=== PATIENT | male | born 1995 | race Hispanic/Latino ===

== ENCOUNTER 2017-11-06 06:50 | Emergency (ER) | payer OTHER ==
[2017-11-06] MEDS ORDERED: ONDANSETRON 4 MG/2 ML VIAL ONE (07:28)
[2017-11-06] MEDS ORDERED: PANTOPRAZOLE 40 MG INJ ONE (07:28)
[2017-11-06] MEDS ORDERED: NA CHLORIDE 0.9% 1,000 ML ONE (07:28)
[2017-11-06 07:32] LABS: Urine Blood NEGATIVE (NEG); Urine Glucose NEGATIVE (NEG); Urine Protein TRACE (NEG); Urine Specific Gravity 1.025 (1.005-1.030); Urine pH 6.5 (5.0-7.0)
[2017-11-06 07:42] LABS: Absolute Lymphocytes (CBC) 2.6 K/uL (0.7-4.9); Absolute Monocytes 0.8 K/uL (0.1-1.3); Absolute Neutrophil 5.2 K/uL (1.8-8.0); Basophils % 0.5 % (0-1.3); Eosinophils % 1.4 % (0-4.4); Hematocrit 48.3 % (39.6-49.0); Lymphocytes % 29.3 % (15.3-44.8); MCH 32.2 pg (27.0-35.0); MCV 89.3 fL (80-100); MPV 9.6 fL (7.6-11.3); Monocytes % 9.2 % (3.3-12.3); RBC Red Blood Cell Count 5.41 M/uL (4.33-5.43)
[2017-11-06 07:49] LABS: Albumin 3.8 g/dL (3.4-5.0); Bilirubin Direct 0.2 mg/dL (0-0.2); Potassium 3.2 mmol/L (3.5-5.1); Protein, Total 7.6 g/dL (6.4-8.2)
[2017-11-06 07:51] LABS: Urine Bacteria <20 /HPF (NONE SEEN); Urine Culture Reflex Order NOT NEEDED; Urine RBC <5 /HPF (NONE SEEN)
[2017-11-06] MEDS ORDERED: POTASSIUM 25 MEQ EFFERV TAB ONE (08:22)
--- NOTE | 2017-11-06 08:59 | ER ---
Nurse's Notes [facility] Name: Christiane Mason Age: 21 yrs Sex: Male : 1995 Arrival Date: 11/06/2017 Time: 06:54 Bed 15 Private MD: Gayathri Soria C Diagnosis: Upper abdominal pain, unspecified Presentation: 11/06 07:01 Presenting complaint: Patient states: RUQ that radiates to the LUQ, started about a sv week ago but pain increased yesterday. Denies urinary symptoms, cough, injury, fall. Transition of care: patient was not received from another setting of care. Onset of symptoms was October 30, 2017. Care prior to arrival: None. 07:01 Method Of Arrival: Ambulatory sv 07:01 Acuity: PRITI 3 sv 07:10 Risk Assessment: Do you want to hurt yourself or someone else? Patient reports no aa5 desire to harm self or others. Initial Sepsis Screen: Does the patient meet any 2 criteria? No. Patient's initial sepsis screen is negative. Does the patient have a suspected source of infection? No. Patient's initial sepsis screen is negative. Historical: - Allergies: 07:07 No Known Allergies; sv - Home Meds: 07:07 None [Active]; sv - PMHx: 07:07 fatty liver; sv - PSHx: 07:07 None; sv - Ebola Screening: : No symptoms or risks identified at this time. Screenin:10 Abuse screen: Denies threats or abuse. Nutritional screening: No deficits noted. aa5 Tuberculosis screening: No symptoms or risk factors identified. Fall Risk None identified. Assessment: 07:10 General: Appears comfortable, Behavior is calm, cooperative. Pain: Complains of pain in aa5 right upper quadrant Pain radiates to left upper quadrant Pain currently is 8 out of 10 on a pain scale. Quality of pain is described as sharp, Pain began 1 week ago. Neuro: Level of Consciousness is awake, alert, obeys commands, Oriented to person, place, time, situation. Cardiovascular: Heart tones S1 S2 present Rhythm is regular. Respiratory: Airway is patent Respiratory effort is even, unlabored, Respiratory pattern is regular, symmetrical. GI: Abdomen is round non-distended, Bowel sounds present X 4 quads. Abd is soft and non tender X 4 quads. Reports intermittent nausea, denies vomiting, reports diarrhea yesterday. : Denies burning with urination, inability to void. EENT: No signs and/or symptoms were reported regarding the EENT system. Derm: Skin is pink, warm \\T\\ dry. Musculoskeletal: Range of motion: intact in all extremities. 08:20 Reassessment: To bedside to administer potassium, pt currently at US. aa5 08:32 Reassessment: Patient is alert, oriented x 3, equal unlabored respirations, skin aa5 warm/dry/pink. Pt back from US, pt sitting up in bed, pt currently denies pain, pt states "the pain is only when I walk and when I move or reposition". Pt notified of wait time for US results, pt verbalizes understanding. . Vital Signs: 07:01 BP 155 / 104; Pulse 93; Resp 18; Temp 97.5; Pulse Ox 100% ; Height 5 ft. 7 in. (170.18 sv cm); Pain 6/10; 07:40 BP 137 / 98; Pulse 75; Resp 16 S; Pulse Ox 99% on R/A; aa5 08:40 BP 129 / 77; Pulse 78; Resp 16 S; Pulse Ox 98% on R/A; Pain 0/10; aa5 09:10 BP 117 / 70; Pulse 74; Resp 18 S; Pulse Ox 99% on R/A; Pain 3/10; aa5 ED Course: 06:54 Patient arrived in ED. al2 06:54 Gayathri Soria MD is Private Physician. al2 07:01 Arm band placed on right wrist. Patient placed in an exam room, on a stretcher. sv 07:02 Scooby Calle PA is PHCP. cp 07:02 Scooby Abreu MD is Attending Physician. cp 07:04 Karla Garduno, LARRY is Primary Nurse. aa5 07:06 Triage completed. sv 07:10 Patient has correct armband on for positive identification. Bed in low position. Call aa5 light in reach. Side rails up X2. Pulse ox on. NIBP on. 07:22 Inserted saline lock: 20 gauge in right antecubital area, using aseptic technique. aa5 Blood collected. IV inserted by Jeanette Giles RN. 07:22 No provider procedures requiring assistance completed. aa5 08:24 US Abdomen Limited In Process Unspecified. EDMS 08:31 Ultrasound completed. Patient tolerated well. Patient moved back from ultrasound. jay 08:58 Tova Kumar MD is Referral Physician. cp 09:12 IV discontinued, intact, bleeding controlled, No redness/swelling at site. Pressure aa5 dressing applied. Administered Medications: 07:25 Drug: ProTONIX 40 mg Route: IVP; Site: right antecubital; aa5 07:30 Follow up: Response: No adverse reaction aa5 07:25 Drug: NS 0.9% 1000 ml Route: IV; Rate: 1 bolus; Site: right antecubital; aa5 08:32 Follow up: IV Status: Completed infusion aa5 07:37 Not Given (Patient Refused): Zofran 4 mg IVP once; over 2 minutes aa5 08:32 Drug: Potassium Effervescent Tablet 50 mEq Route: PO; aa5 09:10 Follow up: Response: No adverse reaction aa5 09:08 Drug: GI Cocktail without - (Maalox Suspension 30 ml, Lidocaine Liquid 2 % 15 aa5 ml) Route: PO; 09:12 Follow up: Response: Medication administered at discharge. aa5 Outcome: 08:59 Discharge ordered by . cp 09:13 Discharged to home ambulatory. aa5 09:13 Condition: stable 09:13 Discharge instructions given to patient, Instructed on discharge instructions, follow up and referral plans. medication usage, Demonstrated understanding of instructions, follow-up care, medications. 09:16 Patient left the ED. aa5 Signatures: Dispatcher [employer] [facility] Nikkie Dewey RN RN sv Calderon, Audri, RN RN aa5 Scooby Calle PA PA cp Dupre, Jacques jd Love, Jennifer carranza
--- NOTE | 2017-11-06 08:59 | EDPHYS ---
Physician Documentation [facility] Name: Christiane Mason Age: 21 yrs Sex: Male : 1995 Arrival Date: 11/06/2017 Time: 06:54 Bed 15 Private MD: Gayathri Soria C ED Physician Scooby Abreu HPI: 11/06 07:15 This 21 yrs old Male presents to ER via Ambulatory with complaints of cp Abdominal Pain. 07:15 The patient presents with abdominal pain in the right upper quadrant. Onset: The cp symptoms/episode began/occurred 1 week(s) ago. 07:15 The symptoms radiate to left upper quadrant. cp 07:15 Associated signs and symptoms: Pertinent negatives: anorexia, blood in stools, chest cp pain, constipation, diarrhea, dysuria, fever, shortness of breath, testicular pain, vomiting. The symptoms are described as waxing/waning. Modifying factors: the symptoms are aggravated by movement. Historical: - Allergies: 07:07 No Known Allergies; sv - Home Meds: 07:07 None [Active]; sv - PMHx: 07:07 fatty liver; sv - PSHx: 07:07 None; sv - Ebola Screening: : No symptoms or risks identified at this time. ROS: 07:20 Constitutional: Negative for body aches, chills, fever, poor PO intake. cp 07:20 Eyes: Negative for injury, pain, redness, and discharge. cp 07:20 ENT: Negative for drainage from ear(s), ear pain, sore throat, difficulty swallowing, difficulty handling secretions. 07:20 Cardiovascular: Negative for chest pain, palpitations. 07:20 Respiratory: Negative for cough, shortness of breath, wheezing. 07:20 Abdomen/GI: Positive for abdominal pain, nausea, Negative for vomiting, diarrhea, constipation, anorexia, dysphagia. 07:20 Back: Negative for radiated pain. 07:20 : Negative for urinary symptoms. 07:20 Skin: Negative for cellulitis, rash. 07:20 Neuro: Negative for altered mental status, headache, weakness. 07:20 All other systems are negative. Exam: 07:27 Constitutional: The patient appears in no acute distress, alert, awake, non-toxic, well cp developed, well nourished. 07:27 Head/Face: Normocephalic, atraumatic. Eyes: Pupils equal round and reactive to light, cp extra-ocular motions intact. Lids and lashes normal. Conjunctiva and sclera are non-icteric and not injected. Cornea within normal limits. Periorbital areas with no swelling, redness, or edema. ENT: Nares patent. No nasal discharge, no septal abnormalities noted. Tympanic membranes are normal and external auditory canals are clear. Oropharynx with no redness, swelling, or masses, exudates, or evidence of obstruction, uvula midline. Mucous membranes moist. Chest/axilla: Normal chest wall appearance and motion. Nontender with no deformity. No lesions are appreciated. Cardiovascular: Regular rate and rhythm with a normal S1 and S2. No gallops, murmurs, or rubs. Normal PMI, no JVD. No pulse deficits. Respiratory: Lungs have equal breath sounds bilaterally, clear to auscultation and percussion. No rales, rhonchi or wheezes noted. No increased work of breathing, no retractions or nasal flaring. 07:27 Abdomen/GI: Inspection: abdomen appears normal, Bowel sounds: active, all quadrants, Palpation: soft, in all quadrants, mild abdominal tenderness, in the epigastric area and right upper quadrant, rebound tenderness, is not appreciated, involuntary guarding, is not appreciated. 07:27 Back: pain, is absent, ROM is normal. 07:27 Skin: cellulitis, is not appreciated, no rash present. Vital Signs: 07:01 BP 155 / 104; Pulse 93; Resp 18; Temp 97.5; Pulse Ox 100% ; Height 5 ft. 7 in. (170.18 sv cm); Pain 6/10; 07:40 BP 137 / 98; Pulse 75; Resp 16 S; Pulse Ox 99% on R/A; aa5 08:40 BP 129 / 77; Pulse 78; Resp 16 S; Pulse Ox 98% on R/A; Pain 0/10; aa5 09:10 BP 117 / 70; Pulse 74; Resp 18 S; Pulse Ox 99% on R/A; Pain 3/10; aa5 MDM: 07:03 Patient medically screened. cp 08:00 Differential diagnosis: cholecystitis, Cholelithiasis, gastritis, non-specific abd cp pain, pancreatitis, Peptic Ulcer Disease, Perf. Duodenal Ulcer, Perf. Gastric Ulcer, Pyelonephritis, Ureterolithiasis, urinary tract infection. 08:57 Data reviewed: vital signs, nurses notes. 08:57 Counseling: I had a detailed discussion with the patient and/or guardian regarding: the cp historical points, exam findings, and any diagnostic results supporting the discharge/admit diagnosis, lab results, radiology results, the need for outpatient follow up, a trainer, to return to the emergency department if symptoms worsen or persist or if there are any questions or concerns that arise at home. Response to treatment: the patient's symptoms have markedly improved after treatment, and as a result, I will discharge patient. Special discussion: Based on the patient's Hx, exam, and Dx evaluation, there is no indication for emergent surgery or inpatient Tx. It is understood by the patient/guardian that if the Sx's persist or worsen they need to return immediately for re-evaluation. 11/06 07:08 Order name: Amylase, Serum; Complete Time: 07:54 11/06 07:08 Order name: Basic Metabolic Panel; Complete Time: 07:54 11/06 07:54 Interpretation: Normal except: K 3.2; GFR 85. 11/06 07:08 Order name: CBC with Diff; Complete Time: 07:54 11/06 07:54 Interpretation: Normal except: MCV 89.3. 11/06 07:08 Order name: Creatinine for Radiology; Complete Time: 07:54 11/06 07:55 Interpretation: Within normal limits. 11/06 07:08 Order name: Hepatic Function; Complete Time: 07:54 11/06 07:54 Interpretation: Normal except: AST 42; ALT 105; ALK 147; GLOB 3.8; A/G 1.0. 11/06 07:08 Order name: Lipase; Complete Time: 07:54 07 07:54 Interpretation: Within normal limits: LIP 84. 11/06 07:08 Order name: Urine Microscopic Only; Complete Time: 07:54 11/06 07:55 Interpretation: Within normal limits. 11/06 07:08 Order name: US Abdomen Limited 11/06 07:20 Order name: Urine Dipstick--Ancillary (enter results); Complete Time: 07:40 eb 11/06 07:55 Interpretation: Within normal limits. 11/06 07:08 Order name: IV Saline Lock; Complete Time: 07:37 cp 11/06 07:08 Order name: Labs collected and sent; Complete Time: 07:37 cp 11/06 07:08 Order name: Urine Dipstick-Ancillary (obtain specimen); Complete Time: 07:37 cp Administered Medications: 07:25 Drug: ProTONIX 40 mg Route: IVP; Site: right antecubital; aa5 07:30 Follow up: Response: No adverse reaction aa5 07:25 Drug: NS 0.9% 1000 ml Route: IV; Rate: 1 bolus; Site: right antecubital; aa5 08:32 Follow up: IV Status: Completed infusion aa5 07:37 Not Given (Patient Refused): Zofran 4 mg IVP once; over 2 minutes aa5 08:32 Drug: Potassium Effervescent Tablet 50 mEq Route: PO; aa5 09:10 Follow up: Response: No adverse reaction aa5 09:08 Drug: GI Cocktail without - (Maalox Suspension 30 ml, Lidocaine Liquid 2 % 15 aa5 ml) Route: PO; 09:12 Follow up: Response: Medication administered at discharge. aa5 Disposition: 09:30 Co-signature as Attending Physician, Scooby Abreu MD I agree with the assessment and alethea plan of care. Disposition: 11/06/17 08:59 Discharged to Home. Impression: Upper abdominal pain, unspecified. - Condition is Stable. - Discharge Instructions: Abdominal Pain, Adult. - Prescriptions for Protonix 40 mg Oral Tablet, Delayed Release (E.C.) - take 1 tablet by ORAL route once daily; 20 tablet. - Work release form, Medication Reconciliation Form, Thank You Letter, Antibiotic Education, Prescription Opioid Use form. - Follow up: Tova Kumar MD; When: 1 - 2 days; Reason: Recheck today's complaints. - Problem is new. - Symptoms have improved. Signatures: Dispatcher [employer] Nikkie Bishop RN RN sv Anderson, Corey, MD MD cha Calderon, Audri, RN RN aa5 Scooby Calle PA PA cp Corrections: (The following items were deleted from the chart) 09:16 08:59 11/06/2017 08:59 Discharged to Home. Impression: Upper abdominal pain, aa5 unspecified. Condition is Stable. Forms are Medication Reconciliation Form, Thank You Letter, Antibiotic Education, Prescription Opioid Use. Follow up: Tova Kumar; When: 1 - 2 days; Reason: Recheck today's complaints. Problem is new. Symptoms have improved. cp
[2017-11-06] MEDS ORDERED: LIDOCAINE VISCOUS 2% SOLN 15 ML UDC ONE (09:04)
[2017-11-06] MEDS ORDERED: MAGNE/ALUM HYDROXD 30 ML UCUP ONE (09:04)
--- NOTE | 2017-11-06 09:29 | RAD REPORT ---
EXAM DESCRIPTION: US - Abdomen Exam Limited - 11/06/2017 8:25 am CLINICAL HISTORY: Abdominal pain. COMPARISON: 2016 FINDINGS: The patient was not NPO which limits evaluation. The gallbladder wall is not thickened. A gallstone is not seen. The biliary tree is normal caliber. IMPRESSION: No abnormalities seen
== END 2017-11-06 09:16 | disposition home or self-care (01) ==
LOC: ER 06:50
DX: R10.10 Upper abdominal pain, unspecified (principal); K76.0 Fatty (change of) liver, not elsewhere classified
CPT/HCPCS: 36415; 76705; 80048; 80076; 81003; 81015; 82150; 83690; 85025; 96361; 96374; 99284; C9113; J2405; J7030